=== PATIENT | female | born 1970 | race Caucasian/White ===

== ENCOUNTER 2017-09-30 12:04 | Day surgery (SDC) | payer BC ==
[~2017-09-30 12:04] MED LIST: ACETAMINOPHEN 1,000 MG/100 ML BTL IV ONE; CEFAZOLIN 2 Gram 2 GM/50 ML BAG IVPB ONE
[2017-09-30] MEDS ORDERED: ONDANSETRON HCL IV 4 MG/2 ML VIAL IVP ONE (12:05)
[2017-09-30] MEDS ORDERED: *PACU ONLY* KETAMINE HCL 10 MG/ML (20ML) VIAL IV ONE (12:05)
[2017-09-30] MEDS ORDERED: METHYLPREDNISOLONE 40MG/VIAL IM ONE (12:05)
[2017-09-30] MEDS ORDERED: BUPIVACAINE 0.5% W/EPI MPF 30 ML VIAL IVP ONE (12:05)
[2017-09-30] MEDS ORDERED: KETOROLAC 30 MG/ML VIAL IVP ONE (12:05)
[2017-09-30] MEDS ORDERED: DEXAMETHASONE 4 MG/ML 1ML VIAL IVP ONE (12:05)
[2017-09-30] MEDS ORDERED: MORPHINE SULFATE 4MG/ML PREFILLED SYRINGE IVP ONE (12:05)
[2017-09-30] MEDS ORDERED: PROPOFOL 10 MG/ML VIAL IV ONE (12:05)
--- NOTE | 2017-10-02 22:53 | Operative Note ---
DATE OF SURGERY: 09/30/2017 PREOPERATIVE DIAGNOSIS: INTERNAL DERANGEMENT LEFT KNEE. POSTOPERATIVE DIAGNOSES: 1. LARGE FLAP TEAR INVOLVING THE POSTERIOR HORN OF THE MEDIAL MENISCUS. 2. MODERATE SYNOVITIS. PROCEDURE: 1. LEFT KNEE ARTHROSCOPY WITH PARTIAL MEDIAL MENISCECTOMY. 2. LEFT KNEE ARTHROSCOPY WITH LIMITED SYNOVECTOMY. STAFF SURGEON: RICARDO SETH M.D. ANESTHESIA: GENERAL. PREPARATION: CHLORAPREP. INDIVIDUAL CONSIDERATIONS: NONE. PROCEDURE: The patient was taken to the Operating Room and placed supine on the operating table. She had a successful induction of a general anesthetic. Her left knee was prepped and draped in the usual fashion. The patient had a superior lateral inflow cannula placed. The skin was infiltrated with 0.5% Marcaine with Epinephrine prior. The knee was then inflated with normal saline. An inferior medial and an inferior lateral portal were made in a similar fashion. The arthroscope was introduced through the inferior lateral portal up into the pouch. The patellofemoral joint was essentially normal except the pouch had moderate synovitis. The shaver was introduced and this was debrided out. Medially, she had an obvious basically split tear involving the posterior horn of the medial meniscus. This was debrided back to a stable rim using basket forceps and a shaver removing most of it. The medial and anterior horns were intact. The articular cartilage was actually intact. In the notch, the cruciates were normal and lateral compartment structures were normal. The knee was then irrigated out with saline to remove loose floating debris. The portals were closed with ramírez and 20 mL of 0.25% plain Marcaine along with 4 mg of Morphine and 40 mg of DepoMedrol were injected into the knee and a sterile Bulkee compressive dressing was applied. The patient tolerated the procedures well. Needle and sponge counts were correct. Estimated blood loss was minimal and she was taken back to Recovery in good condition. There were no complications. JOB NUMBER: [id number] MTDD
== END 2017-09-30 17:00 | disposition home or self-care (01) ==
LOC: SUR 12:04
PROVIDERS: ATTEND Orthopaedic Surgery
DX: S83.242A Other tear of medial meniscus, current injury, left knee, initial encounter (principal); M65.862 Other synovitis and tenosynovitis, left lower leg
CPT/HCPCS: J1030; J1885; J2274; J2405